=== PATIENT | male | born 1995 | race Caucasian/White ===

== ENCOUNTER 2018-03-20 23:19 | Emergency (ER) | payer OTHER ==
[2018-03-20 23:29] VITALS: BP 125/78
--- NOTE | 2018-03-20 23:34 | EDPHY ---
H & P Stated Complaint: laceration to right ring finger from glass bottle Time Seen by Provider: 03/20/18 23:33 HPI/ROS: HPI: This is a 22-year-old male who presents with Chief Complaint: laceration to right ring finger from glass bottle Location: Right ring finger Quality: Laceration Duration: Prior to arrival Signs and Symptoms: + bleeding, no radiation, no numbness, no weakness, no tingling, no incontinence, no decreased range of motion, no swelling, no pain, no fever Timing: Acute Severity: Mild Context: Patient is right-hand dominant, presents with accidentally cutting his right ring finger on the pad with a glass bottle prior to arrival. He reports that he felt immediate, constant, moderate pain that is nonradiating in nature. Patient reports that the bleeding only lasted for a few seconds but stopped with direct pressure. Reports tetanus is current. Denies any paresthesias, weakness, decreased range of motion. Modifying Factors: Direct pressure Comment: ROS: A comprehensive 10 system review of systems is otherwise negative aside from elements mentioned in the history of present illness. MEDICAL/SURGICAL/SOCIAL HISTORY: Medical history: Anxiety, attention deficit hyperactivity disorder Surgical history: Denies Social history: Current every day smoker. CONSTITUTIONAL: Slightly anxious, young adult male, awake and alert, no obvious distress HEENT: Atraumatic and normocephalic. NECK: supple EXTREMITIES: 2/2 pulses, strength 5/5, right ring finger pad shows 2.5 cm C- shaped superficial laceration that is simple. DIP/PIP/MCP flexion/extension intact with good light touch sensation. no deformities, no clubbing, no cyanosis or edema. NEUROLOGICAL: no focal neuro deficits. GCS 15. Light touch sensation intact. SKIN: Warm and dry, no erythema. no rash. Good capillary refill. Source: Patient Exam Limitations: No limitations - Personal History Current Tetanus/Diphtheria Vaccine: Yes Current Tetanus Diphtheria and Acellular Pertussis (TDAP): Yes - Medical/Surgical History Hx Asthma: No Hx Chronic Respiratory Disease: No Hx Diabetes: No Hx Cardiac Disease: No Hx Renal Disease: No Hx Cirrhosis: No Hx Alcoholism: No Hx HIV/AIDS: No Hx Splenectomy or Spleen Trauma: No Other PMH: anxiety - Social History Smoking Status: Current every day smoker Constitutional: Initial Vital Signs Temperature (C) 36.9 C 03/20/18 23:26 Heart Rate 86 03/20/18 23:26 Respiratory Rate 16 03/20/18 23:26 Blood Pressure 125/78 H 03/20/18 23:26 O2 Sat (%) 95 03/20/18 23:26 O2 Delivery Mode Room Air Allergies/Adverse Reactions: No Known Allergies Allergy (Unverified 03/20/18 23:29) Home Medications: Medication Instructions Recorded Adderall 10 MG (*) 03/20/18 Sertraline HCl 03/20/18 Medical Decision Making Procedures: Procedure: Laceration repair. Verbal consent was obtained from the patient. The 3 cm, C-shaped, superficial, simple laceration on the right ring finger pad was anesthetized in the usual fashion using 2 and 0.5 mL of 1% lidocaine without epinephrine The wound was irrigated, draped and explored to its base with a gloved finger. There were no deep structures involved. No tendon injury was identified. The wound was repaired with #4, 5-0 Prolene. Good hemostasis was achieved and patient tolerated procedure well. Clean sterile dressing applied. The procedure was performed by myself. ED Course/Re-evaluation: Tetanus is up-to-date Local anesthesia provided; copiously irrigated; laceration repaired Verbal and written wound care instructions provided No signs of neurovascular compromise/tenting of skin/compartment syndrome/ extremities and joints examined above and below area of concern and are neurovascularly intact. This patient was seen under the supervision of my secondary supervising physician. I evaluated care for this patient independently. Discussed this patient with Dr. Jerry. Differential Diagnosis: Differential diagnosis includes but is not limited to fracture, laceration, nerve injury, tendon injury, foreign body. Departure - Departure Disposition: Home, Routine, Self-Care Clinical Impression: Laceration of right ring finger with complication Condition: Good Instructions: Care For Your Stitches (ED), Laceration (ED) Additional Instructions: Keep the dressing dry and in place for 48 hours. After 48 hours, you may remove the dressing; wash the site daily with mild soap and water; then pat dry. Take Tylenol 650 mg every 4 hours and/or Ibuprofen 600 mg every 8 hours with food as needed for pain. Wound Care Follow-Up: Removal of sutures in [7-10 ] days. Suture removal is complimentary in uncomplicated cases. Infection or abnormal findings would require reevaluation by the MD. In that case, you may be billed. Return to the ER immediately if you experience redness, red streaks, have fevers /chills, flu like symptoms, limited range of motion, or any other symptoms that concern you. Referrals: [facility],. [Clinic] - As per Instructions
== END 2018-03-21 00:15 | disposition home or self-care (01) ==
PROC: 0HQFXZZ Repair Right Hand Skin, External Approach (ICD-10-PCS; principal; 2018-03-20)
DX: S61.214A Laceration without foreign body of right ring finger without damage to nail, initial encounter (principal); F17.200 Nicotine dependence, unspecified, uncomplicated; W25.XXXA Contact with sharp glass, initial encounter; Y92.9 Unspecified place or not applicable; Y93.9 Activity, unspecified; Y99.9 Unspecified external cause status